=== PATIENT | female | born 2000 | race Caucasian/White ===

== ENCOUNTER 2025-06-22 16:46 | Emergency (ER) | payer OTHER, SELFPAY ==
[2025-06-22 16:49] VITALS: BP 173/100; PULSE 154; RESP 20; TEMP 37.7; O2SAT 99
--- OUTSIDE RECORDS SUMMARY | 2025-06-22 16:54 | XMS_ITS | Clinical Summary ---
Author Organization 4 [facility] Address [address] [place] [address] Care Team Providers Care Electrical And Instrumentation Mechanic Name Role Phone No, Physician Primary Care Provider [phone] Allergies No known active allergies Medications citalopram (CeleXA) 10 mg tablet take 1 tablet by oral route every day 0 0 08/13/2016 Active clonazePAM (KlonoPIN) 0.5 mg tablet take 1 Tablet by oral route every day as needed 0 0 08/13/2016 Active melatonin tablet 3 mg. 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; Comments: ESTRELLA 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 C vanessa social anxiety disorder Family History Medical History Relation Name Comments Factor V Leiden Mother Family histo ry of factor V Leiden mutation - (Added by TW Conv) Other Mother Factor 5 Lieden ; Thyroid disease Mother Family histo ry of thyroid disease - (Added by TW Conv) Diabetes Other Family history of Diabetes mellitus; Other Other Family history of unknown type of cancer.; Relation Name Status Comments Mother Other Social History Tobacco Use Types Packs/Day Years Used Date Smoking Tobacco: Never Personal Safety Answer Date Recorded Have you ever been in or are you currently in a harmful physical or emotional relationship or is someone making you feel afraid or unsafe? 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 Gender Identity Not on file Sexual Orientation Not on file Obstetrics History Para Term AB IAB SAB Ectopic Multiple Livin g Live Births 0 0 0 0 0 0 0 0 0 0 0 Last Filed Vital Signs Vital Sign Reading Time Taken Comments Blood Pressure 107/71 02/19/2025 6:00 AM CDT Pulse 109 02/19/2025 6:00 AM CDT Temperature 37.7 C (99.8 F) 02/18/2025 11:47 PM CDT Respiratory Rate 18 02/18/2025 11:47 PM CDT Oxygen Saturation 96% 02/19/2025 6:00 AM CDT Inhaled Oxygen Concentration - - Weight 52.2 kg (115 lb) 02/18/2025 11:47 PM CDT Height 157.5 cm (5' 2) 02/18/2025 11:47 PM CDT Body Mass Index 21.03 02/18/2025 11:47 PM CDT Plan of Treatment Health Maintenance Due Date Last Done Comments Cervical Cancer Screening 2002 Depression Screening 2002 Hepatitis C Screening 2002 Varicella Vaccines (1 of 2 - 13+ 2-dose series) 2015 HPV Vaccines (1 - 3-dose series) 2017 Meningococcal B Vaccine (1 o f 2 - Standard) 2018 Hepatitis B Screening 2020 Regular Well Visit/Exam 18-64 2020 DTaP/Tdap/Td Vaccine (2 - Td or Tdap) 07/26/2024 07/26/2014 Influenza Vaccine (#1) 2025 07/23/2019 Pneumococcal vaccine <65 Aged Out No longer eligible based on patient's age to complete this topic Insurance [facility] PL[facility] Care Teams Electrical And Instrumentation Mechanic Relationship Specialty Start Date End Date No, Physician PCP - General 02/19/25
--- OUTSIDE RECORDS SUMMARY | 2025-06-22 16:54 | XMS_ITS | Clinical Summary ---
Author Organization [facility] Address [address] [place] [address] Phone Care Team Providers Care Interactive Project Manager Name Role Phone Alexandra Hatch JEFFREY, JUAN MIGUEL Primary Care Pro vider Allergies No known active allergies Medications ibuprofen (MOTRIN) 600 MG Tablet Take 1 Tab by mouth every 8 hours as needed for Moderate or more severe pain. 20 Tab 07/14/2019 Active Social History Tobacco Use Types Packs/Day Years Used Date Smoking Tobacco: Never Assessed Comments No Sex and Gender Information Value Date Recorded Sex Assigned at Not on file Legal Sex Female 12:34 AM CDT Gender Identity Not on file Sexual Orientation Not on file Last Filed Vital Signs Vital Sign Reading Time Taken Comments Blood Pressure 112/78 07/14/2019 12:25 PM CDT Pulse 78 07/14/2019 12:25 PM CDT Temperature 36.8 C (98.2 F) 07/14/2019 9:48 AM CDT Respiratory Rate 18 07/14/2019 12:25 PM CDT Oxygen Saturation 99% 07/14/2019 12:25 PM CDT Inhaled Oxygen Concentration - - Weight 51.3 kg (113 lb 1.5 oz) 07/14/2019 9:48 A M CDT Height 161.3 cm (5' 3.5) 07/14/2019 9:48 AM CDT Body Mass Index 19.72 07/14/2019 9:48 AM CDT Plan of Treatment Health Maintenance Due Date Last Done Comments Hepatitis C Virus (HCV) Screening 2002 Human Papillomavirus (HPV) Immunization (1 - 3-dose series) 2017 Meningococcal B Immunization (1 of 2 - Standard) 2018 Hepatitis B Immunization (1 of 3 - 19+ 3-dose series) 2021 Influenza Immunization (#1) 2025 SARS-COV-2 Immunization (2 - 2024- season) 2025 12/03/2021 Respiratory Syncytial Virus (RSV) Immunization (Adult) (1 - 1-dose 75+ series) 2077 DTaP/Tdap/Td Immunization Discontinued 07/26/2014 TdaP Immunization Completed 07/26/2014 Meningococcal Immunization (ACWY) Aged Out 017 No longer eligible based on patient's age to complete this topic Pneumococcal Immunization Combined Aged Out No longer eligible based on patient's age to complete this topic Rotavirus Immunization Aged Out No lo nger eligible based on patient's age to complete this topic Insurance MEDICAID [employer] Care Teams Interactive Project Manager Relationship Specialty Start Date End Date Alexandra Hatch, JEFFREY, COURT STENOGRAPHER [address] [place] [id number] PCP - General Certified Nurse Practitioner 04/03/18
--- NOTE | 2025-06-22 16:59 | ECG_ITS ---
Test Date: 2025-06-22 17:08:44 Measurements Intervals Morgan Rate: 117 P: 73 IN: 127 QRS: 59 QRSD: 65 T: 52 QT: 304 QTc: 424 Interpretive Statements SINUS TACHYCARDIA No previous ECG available for comparison Electronically Signed On 06-23-2025 10:58:22 CDT by Jae Sanchez M.D.
[2025-06-22 17:00] VITALS: BP 159/98
--- NOTE | 2025-06-22 17:04 | ED_ITS ---
HPI - Dizziness General Chief Complaint: Dizziness Stated Complaint: Dizziness/Nausea/Light Headed Source: patient Mode of arrival: ambulatory Limitations: no limitations History of Present Illness HPI Narrative: 24 y/o female with Factor V presented for c/o dizziness x4 days. Endorses room spinning sensation. Symptoms started after drinking red wine. Endorses symptoms are worse today with nausea, vomiting, sweating, and felt like she was stumbling when getting out of bed due to the dizziness. Has been able to tolerate fluids but food is not staying down. Denies abdominal pain ,chest pain, palpitations, or fatigue. Took Benadryl which she says does help symptoms. Related Data Allergies Allergy/AdvReac Type Severity Reaction Status Date / Time iv dye Allergy Unknown Unknown Uncoded 06/22/25 17:00 Review of Systems Review of Systems: CONSTITUTIONAL: Denies body aches, fever, reports chills, sweats. EYES: Denies visual changes, redness, or discharge. ENT: Denies rhinorrhea, congestion, sore throat, or otalgia. CARDIOVASCULAR: Denies chest pain, palpitations, or edema. RESPIRATORY: Denies cough or dyspnea. GASTROINTESTINAL: Denies abdominal pain, reports nausea, vomiting GENITOURINARY: Denies dysuria or hematuria. NEUROLOGIC: reports dizziness Denies headache, numbness, tingling, or weakness. PSYCH: reports anxiety. All systems reviewed & are unremarkable except as noted in HPI and below PMFSH Past Medical History Medical History (Updated 06/22/25 @ 17:30 by Jody Luis APRN) Factor V Leiden Comments At time of signature, I have reviewed and agree with nursing past medical, surgical, social and family history unless otherwise noted. Please see nursing chart for further information. There is no relevant family history pertinent to the presenting complaint Exam Narrative: GENERAL: Well-appearing, and in no acute distress. HEAD: Normocephalic, atraumatic. EYES: EOMI. PERRLA, No redness or drainage. Conjunctivae normal. ENT: Mucous membranes pink and moist. No rhinorrhea. TMs normal bilaterally. Throat normal. Uvula midline. NECK: Normal AROM. Supple. CHEST: No respiratory distress. Clear to auscultation. HEART: Tachycardic and Regular rhythm. No murmur appreciated. Normal peripheral pulses. ABDOMEN: Soft, nontender, nondistended, normal active bowel sounds. SKIN: Warm, dry, no rash. Capillary refill normal. Normal skin turgor. NEURO: No focal deficits. Alert and oriented x3. Gait steady. PSYCH: Appears anxious Course Course Emergency Course: Patient is aware of diagnosis, understands and agrees to treatment plan. Anticipatory guidance given. Patient agrees to follow-up as directed and is aware of reasons to seek care at the emergency department. Portions of this record may have been created with voice recognition software Level of Care: Express Care Visit Vital Signs Vital signs: Vital Signs Temperature 100 F H 06/22/25 16:49 Pulse Rate 154 H 06/22/25 16:49 Respiratory Rate 20 06/22/25 16:49 Blood Pressure 173/100 H 06/22/25 16:49 Pulse Oximetry 99 06/22/25 16:49 Oxygen Delivery Room Air 06/22/25 16:49 Temperature 100 F H 06/22/25 16:49 Pulse Rate 154 H 06/22/25 16:49 Respiratory Rate 20 06/22/25 16:49 Blood Pressure 159/98 H 06/22/25 17:00 Pulse Oximetry 99 06/22/25 16:49 Oxygen Delivery Room Air 06/22/25 16:49 MDM - Dizziness MDM Narrative Medical decision making narrative: Discussed physical exam findings and EKG. Pt declines viral testing and denies chance of . Discussed at length possible etiologies and offered transfer to ER. Pt is agreeable to try meds for symptoms and will closely monitor, she will report to ER immediately for any worsening symptoms or no improvement in symptoms. Advised supportive measures and signs/symptoms to go to the ER. Pt is appropriate for outpt treatment and f/u. Differential Diagnosis Differential diagnosis: Likely adverse reaction to drug, benign paroxysmal positional vertigo, orthostatic hypotension, vertebral basilar insufficiency, transient cerebral ischemia and other (anemia, dehydration, sepsis, arrhythmia, BPPV, labyrinthitis, vestibular neuritis, sinusitis, CVA, migraine, viral infection) ECG Data EKG #1: Attestation: I personally reviewed and interpreted this ECG as follows: (ST rate 117 SD 127, QRS 65, QT/QTc 304/373) ECG completion date: 06/22/25 ECG completion time: 17:08 Prior ECG tracings: not available for review EKG Interpretation: tachycardia and sinus rhythm Discharge Plan Discharge Clinical Impression: Dizziness Patient Disposition: Home Condition: Stable Instructions: Antibiotic Form, Vertigo (ED) Additional Instructions: Change positions slowly Sit down immediately if you feel dizzy or lightheaded Increase water intake, stay hydrated Meclizine for dizziness Ondansetron for nausea You can try the maneuver for dizziness as discussed Watch for worsening symptoms (headache, vision changes, dizziness that does not go away, chest pain, heart racing, sweating etc) Go to the ER for these symptoms or any other concerns. Stay hydrated. Take small sips of fluid containing electrolytes frequently. Clear liquids (broth, jello, tea, sprite, pedialyte) [place] foods (bananas, rice, applesauce, toast, crackers) Avoid fatty, greasy, fried or spicy foods. Limit dairy until symptoms are improved. You should go to the hospital if you experience persistent nausea and vomiting that does not resolve and does not allow you to tolerate any food or fluids, fe vers, increasing abdominal pain, persistent diarrhea, dizziness, fainting, or for any other concerns. Follow up with primary care provider in 2 days. Patient Language: [place] Citizen Prescriptions: New meclizine 25 mg tablet 25 mg PO TID Qty: 12 0RF ondansetron 4 mg tablet,disintegrating 4 mg PO Q8H PRN (Reason: nausea and vomiting) Qty: 20 0RF Follow-up/Referrals: PHYSICIAN,TRANSMITTER SUPERVISOR [Primary Care Provider, Internal Medicine] Time of Disposition: 17:26
== END 2025-06-22 17:30 | disposition home or self-care (01) ==
PROVIDERS: Emergency Provider Nurse Practitioner Family
DX: R42 Dizziness and giddiness (principal); D68.51 Activated protein C resistance
CPT/HCPCS: 93005; 99203; G0463